=== PATIENT | female | born 1945 | race Two or more races ===

== ENCOUNTER 2020-11-07 11:00 | Emergency (ER) | payer OTHER ==
[~2020-11-07] VITALS: Ht 160 cm; Wt 56.7 kg
[2020-11-07] MEDS ORDERED: HYZAAR 100-12.1 EACH (11:08)
== END 2020-11-07 13:36 | disposition home or self-care (01) ==
LOC: ER 11:00
DX: K29.60 Other gastritis without bleeding (principal); R10.13 Epigastric pain